=== PATIENT | male | born 1980 ===

== ENCOUNTER 2021-06-09 16:13 | Emergency (ER) | payer OTHER ==
[~2021-06-09] VITALS: Ht 167.6 cm; Wt 90.3 kg
[2021-06-09] MEDS ORDERED: IBUPROFEN 800 MG TAB PO ONE (21:15)
[2021-06-09] MEDS ORDERED: IBU600T PO (22:09)
[2021-06-09] MEDS ORDERED: TRAM50TA2 PO (22:10)
[2021-06-09 23:00] VITALS: BP 128/64
== END 2021-06-09 23:19 | disposition home or self-care (01) ==
LOC: ER 16:13
DX: M51.9 Unspecified thoracic, thoracolumbar and lumbosacral intervertebral disc disorder (principal)
CPT/HCPCS: 72131

== ENCOUNTER 2021-10-14 18:23 | Inpatient (IN) | payer MEDICAID, OTHER ==
[~2021-10-14] VITALS: Ht 167.6 cm; Wt 86.0 kg
[~2021-10-14 18:23] MED LIST: IBU600T PO; TRAM50TA2 PO
[2021-10-15] MEDS ORDERED: CLINDAMYCIN 300MG IV 50 ML IV ONE ×2 (09:00→15:42)
[2021-10-15 09:04] LABS: Barbiturate Scree,Urine NEGATIVE (NEGATIVE); Cannabinoid Screen, Urine NEGATIVE (NEGATIVE); Urine Bacteria FEW /hpf (None Seen); Urine Blood Negative /uL (Negative); Urine Specific Gravity 1.002 (1.001-1.035); Urine WBC <1 /hpf (0 - 3)
[2021-10-15 09:05] LABS: Basophils # (auto) 0.1 10 ^3/uL (0-0.2); Basophils % (auto) 1.1 % (0.0-2.0); Eosinophils # (auto) 0.2 10 ^3/uL (0-0.8); Eosinophils % (auto) 3.3 % (0.0-7.0); Hemoglobin 15.2 g/dL (13.5-17.5); Lymphocytes # (auto) 1.2 10 ^3/uL (0.4-5.4); Lymphocytes % (auto) 19.1 % (10.0-50.0); Mean Corpuscular Hemoglobin 31.2 pg (28.0-32.0); Mean Corpuscular Volume 94.5 fL (80.0-100.0); Monocytes # (auto) 0.4 10 ^3/uL (0-1.3); Neutrophils # (auto) 4.4 10 ^3/uL (1.6-8.6); Neutrophils % (auto) 69.5 % (37.0-80.0); Nucleated Red Blood Cells % 0.1 %; Red Blood Cells 4.87 10^6/uL (4.5-5.90); Red Cell Distribution Width 13.3 % (11.8-14.3); White Blood Cell 6.3 10^3/uL (4.4-10.8)
[2021-10-15 09:06] LABS: Amphetamine Screen, Urine NEGATIVE (NEGATIVE); Benzodiazephine Screen, Urine NEGATIVE (NEGATIVE); Cocaine Screen, Urine NEGATIVE (NEGATIVE); Opiate Scree,Urine NEGATIVE (NEGATIVE); Phencyclidine Screen, Urine NEGATIVE (NEGATIVE)
[2021-10-15 09:26] LABS: Albumin 3.9 g/dL (3.4-5.0); Calcium 9.1 mg/dL (8.5-10.1); Potassium 3.8 mmol/L (3.5-5.1)
[2021-10-15 09:31] LABS: BUN/Creatinine Ratio 14.3; Bilirubin, Total 0.4 mg/dL (0.2-1.0)
[2021-10-15] MEDS ORDERED: MORPHINE SULFATE INJ 2 MG/ml SYRG IV PRN ×2 (18:15)
[2021-10-15] MEDS ORDERED: ACETAMINOPHEN 325 MG TAB PO PRN (18:15)
[2021-10-15] MEDS ORDERED: ONDANSETRON HCL 4 MG/2 ML VIAL IV PRN (18:15)
[2021-10-15] MEDS ORDERED: NITROGLYCERIN 0.4 MG SL TAB SL PRN (18:15)
[2021-10-15] MEDS: SODIUM CHLORIDE 0.9% 1,000 ML IV SCH (18:33)
[2021-10-15] MEDS: CLINDAMYCIN 600MG IV 50 ML IV SCH (22:36)
[2021-10-15 23:24] VITALS: BP 186/101
[2021-10-16] VITALS (8 sets, daily range): BP systolic 138–160; BP diastolic 85–94
[2021-10-16] MEDS: SODIUM CHLORIDE 0.9% 1,000 ML IV SCH ×3 (02:18→19:21)
[2021-10-16 05:06] LABS: Basophils # (auto) 0.1 10 ^3/uL (0-0.2); Basophils % (auto) 1.1 % (0.0-2.0); Eosinophils # (auto) 0.2 10 ^3/uL (0-0.8); Eosinophils % (auto) 3.2 % (0.0-7.0); Hematocrit 41.2 % (41.0-53.0); Hemoglobin 13.9 g/dL (13.5-17.5); Lymphocytes # (auto) 1.8 10 ^3/uL (0.4-5.4); Mean Corpuscular Hemoglobin 31.6 pg (28.0-32.0); Mean Corpuscular Hgb Conc. 33.8 g/dL (32.0-36.0); Mean Corpuscular Volume 93.7 fL (80.0-100.0); Monocytes # (auto) 0.6 10 ^3/uL (0-1.3); Monocytes % (auto) 8.7 % (0.0-12.0); Neutrophils # (auto) 3.9 10 ^3/uL (1.6-8.6); Nucleated Red Blood Cells % 0.1 %; Red Cell Distribution Width 13.5 % (11.8-14.3); White Blood Cell 6.6 10^3/uL (4.4-10.8)
[2021-10-16 05:25] LABS: Albumin 3.1 g/dL (3.4-5.0); Calcium 8.7 mg/dL (8.5-10.1); Potassium 4.2 mmol/L (3.5-5.1)
[2021-10-16 05:28] LABS: BUN/Creatinine Ratio 16.9; Bilirubin, Total 0.4 mg/dL (0.2-1.0); Total Protein 6.4 g/dL (6.4-8.2)
[2021-10-16] MEDS: CLINDAMYCIN 600MG IV 50 ML IV SCH ×2 (05:47→13:39)
[2021-10-16] MEDS: ENOXAPARIN SOD 40 MG/0.4 ML SYRINGE SC SCH (10:20)
[2021-10-17] MEDS: SODIUM CHLORIDE 0.9% 1,000 ML IV SCH ×2 (03:35→10:11)
[2021-10-17 05:00] VITALS: BP 142/90
[2021-10-17 09:00] VITALS: BP 122/68
[2021-10-17] MEDS: ENOXAPARIN SOD 40 MG/0.4 ML SYRINGE SC SCH (10:11)
[2021-10-17] MEDS: HYDROcodone-ACET 5/325MG TAB PO PRN ×2 (10:23→18:58)
[2021-10-17 13:00] VITALS: BP 150/80
[2021-10-17 17:00] VITALS: BP 143/100
[2021-10-17 22:00] VITALS: BP 141/81
[2021-10-17] MEDS: CLINDAMYCIN 600MG IV 50 ML IV SCH (22:10)
[2021-10-18 05:00] VITALS: BP 134/87
[2021-10-18] MEDS: CLINDAMYCIN 600MG IV 50 ML IV SCH ×2 (05:18→14:26)
[2021-10-18 09:00] VITALS: BP 156/86
[2021-10-18] MEDS: ENOXAPARIN SOD 40 MG/0.4 ML SYRINGE SC SCH (10:29)
[2021-10-18] MEDS ORDERED: AMOX-277 PO (15:25)
== END 2021-10-18 16:40 | disposition home or self-care (01) | DRG 383 ==
LOC: ER 18:28 → OVERFLOW 10-15 18:10 → WEST WING 10-15 23:10
PROVIDERS: ADMIT Internal Medicine; ATTEND Internal Medicine
DX: L02.415 Cutaneous abscess of right lower limb (principal); Z20.822 Contact with and (suspected) exposure to COVID-19; Z83.3 Family history of diabetes mellitus
CPT/HCPCS: 36415; 73701; 80053; 80307; 81001; 85025; 87040; 93971; 96365; 96366; 97163; G0378; J3490

== ENCOUNTER 2023-06-02 22:30 | Emergency (ER) | payer SELFPAY ==
[~2023-06-02] VITALS: Ht 172.7 cm; Wt 97.3 kg
[~2023-06-02 22:30] MED LIST changes: +AMOX875T4 PO; -IBU600T PO; -TRAM50TA2 PO
[2023-06-02 22:52] VITALS: BP 133/72; PULSE 73; RESP 16; O2SAT 95
[2023-06-02 23:29] LABS: Basophils # (auto) 0.1 10 ^3/uL (0-0.2); Basophils % (auto) 1.1 % (0.0-2.0); Eosinophils # (auto) 0.1 10 ^3/uL (0-0.8); Eosinophils % (auto) 0.9 % (0.0-7.0); Hematocrit 45.8 % (41.0-53.0); Lymphocytes # (auto) 2.3 10 ^3/uL (0.4-5.4); Lymphocytes % (auto) 25.7 % (10.0-50.0); Mean Corpuscular Hemoglobin 29.9 pg (28.0-32.0); Mean Corpuscular Hgb Conc. 32.8 g/dL (32.0-36.0); Mean Corpuscular Volume 91.2 fL (80.0-100.0); Monocytes # (auto) 0.7 10 ^3/uL (0-1.3); Monocytes % (auto) 7.3 % (0.0-12.0); Neutrophils # (auto) 5.8 10 ^3/uL (1.6-8.6); Red Blood Cells 5.03 10^6/uL (4.5-5.90); Red Cell Distribution Width 14.1 % (11.8-14.3); White Blood Cell 8.9 10^3/uL (4.4-10.8)
[2023-06-02 23:49] LABS: Alanine Aminotransferase 32 U/L (7-40); Albumin 4.5 g/dL (3.2-4.8); Alkaline Phosphatase 100 U/L (46-116); Anion Gap 9 (5-15); Aspartate Aminotransferase 22 U/L (13-40); Blood Urea Nitrogen 8 mg/dL (9-23); Calcium 9.6 mg/dL (8.7-10.4); Carbon Dioxide 24 mmol/L (20-30); Chloride 110 mmol/L (98-107); Glucose 111 mg/dL (74-106); Potassium 3.7 mmol/L (3.5-5.1); Sodium 143 mmol/L (136-145)
[2023-06-02 23:50] LABS: Bilirubin, Total 0.4 mg/dL (0.2-1.0); Total Protein 7.6 g/dL (5.7-8.2)
[2023-06-03] LABS: Urine Bacteria FEW /hpf (None Seen); Urine Blood Negative /uL (Negative); Urine Clarity Clear (Clear); Urine Color Colorless (Yellow); Urine Protein, UAD Negative (Negative); Urine Specific Gravity 1.005 (1.001-1.035); Urine Urobilinogen Normal (Negative); Urine WBC 6 /hpf (0 - 3)
[2023-06-03] MEDS ORDERED: BACDST PO (00:48)
[2023-06-03] MEDS: MORPHINE SULFATE 4 MG/ML SYR/VIAL IM ONE (02:12)
[2023-06-03] MEDS: ONDANSETRON HCL 4 MG/2 ML VIAL IM ONE (02:12)
== END 2023-06-03 02:13 | disposition home or self-care (01) ==
LOC: ER 22:30
DX: N30.90 Cystitis, unspecified without hematuria (principal); Z79.2 Long term (current) use of antibiotics; Z79.899 Other long term (current) drug therapy
CPT/HCPCS: 36415; 74176; 80053; 81001; 85025